=== PATIENT | male | born 1955 | race Caucasian/White ===

== ENCOUNTER 2016-11-30 07:59 | Inpatient (IN) | payer MEDICARE ==
--- NOTE | 2016-11-17 16:04 | HP ---
PREOPERATIVE HISTORY AND PHYSICAL: DATE OF SURGERY: 11/30/16 DATE OF OFFICE VISIT: 11/17/16 ATTENDING SURGEON: Glory Styles MD * (DICTATED BY NAHUM VIRAMONTES) PROCEDURE: Right total hip replacement. CHIEF COMPLAINT: Right hip pain. HISTORY OF PRESENT ILLNESS: Mr. 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 He has failed conservative measures and has therefore agreed to undergo a right total hip replacement with Dr. Styles on 11/30/16. PAST MEDICAL HISTORY: 1. GERD. 2. Hypertension. 3. Hypercholesterolemia. 4. Osteoarthritis. 5. Glass's esophagus. 6. Glucose intolerance. 7. Colon polyps. 8. Hepatitis A as a child. 9. Familial tremor. PAST SURGICAL HISTORY: Left ankle fusion in 2011, left knee surgery in 1969, and a cyst removed from his jaw in 1999. MEDICATIONS: 1. Omeprazole 40 mg 1 by mouth every day. 2. 10 mg by mouth 2 to 3 times per day as directed. 3. Rosuvastatin 40 mg take 1 by mouth once a day. 4. Cialis 5 mg 1 by mouth every 3 days as needed. 5. Diovan HCT 160/12.5 mg take 1 by mouth once daily. 6. Alprazolam 0.25 mg 1 to 2 by mouth every 8 hours as needed, do not mix with alcohol. 7. Amlodipine besylate 2.5 mg take 1 by mouth once a day. 8. Aspirin 81 mg 1 tab by mouth daily. ALLERGIES: No known drug allergies. FAMILY HISTORY: Positive for maternal and paternal hypertension and paternal heart disease. SOCIAL HISTORY: He lives with his son. He is retired. He reports occasional alcohol consumption. He reports prior tobacco abuse. He quit in 2008. He is not currently a smoker. He denies illegal drug use. REVIEW OF SYSTEMS: General: Negative for fevers, chills, or night sweats. No anesthesia problems. HEENT: Negative for headache, lightheadedness, or syncopal episodes. Integumentary: Negative for abrasions, lesions, or open wounds. Cardiothoracic: Negative for chest pain, palpitations, or edema. Positive for hypertension. Pulmonary: Negative for shortness of breath with exertion, chronic cough, or COPD. GI: Negative for nausea, vomiting, diarrhea, or constipation. Positive GERD. : Negative for nocturia, urinary frequency, history of UTIs, or kidney problems. Musculoskeletal: Positive for current complaint. Neuro: Negative for numbness, tingling, history of seizure, stroke, or epilepsy. Endocrine: Denies diabetes or thyroid disease. Heme: Negative for easy bruising, history of bleeding disorder, history of DVT or PE. Infectious Disease: Negative for history of MRSA, hep C, or HIV. PHYSICAL EXAMINATION GENERAL: Well-developed, well-nourished, 60-year-old male, in no acute distress. Alert and oriented x3. Appropriate mood and affect. VITAL SIGNS: Height 71, weight 181, pulse 73, blood pressure 130/76, temperature 97.5, BMI 25.2. HEENT: Normocephalic, atraumatic. Throat: Clear. NECK: Supple. PULMONARY: Lungs are clear to auscultation bilaterally. No wheezing, rhonchi, or rales. CARDIO: Regular rate and rhythm. S1, S2. No murmurs, gallops, or rubs. No edema. ABDOMEN: Positive bowel sounds, soft, and nontender. NEURO: Alert and oriented x3. Cranial nerves grossly intact. Sensation is intact to light touch. MUSCULOSKELETAL: Right lower extremity, skin is intact. No abrasions or open wounds. No palpable masses or lymph nodes. Range of motion from 0 to 95 degrees of hip flexion, 0 degrees internal rotation, 30 degrees external rotation with extreme groin pain. Active hip flexion and abduction also cause pain. +2 dorsalis pedis and posterior tibialis pulses. Sensation is intact to light touch distally. 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 IMPRESSION: Right hip osteoarthritis and advanced idiopathic aseptic necrosis. PLAN: The patient is scheduled to undergo a right total hip replacement with Dr. Styles on 11/30/16. He will return to the office in 10 to 14 days for postoperative followup and suture removal. Percocet was prescribed to the patient's pharmacy for postop pain management, Colace was sent for prevention of constipation, and Coumadin was sent for DVT prophylaxis. The patient was instructed not to take aspirin 1 week prior to surgery and has been cleared by his PCP. NAHUM VIRAMONTES [id number]/[facility] #: [id number] [facility]
[~2016-11-30 07:59] MED LIST: Buffered Lidocaine 0.9% SYRIN* 5 ML/SYR SYRINGE INTRADERM ONE
[2016-11-30] MEDS ORDERED: ceFAZolin 2 GM PREMIX (*) 50 ML IVPB ONE (08:11)
[2016-11-30] MEDS ORDERED: ceFAZolin 1 GM ADVAN(*) 1 GM ADDV.VIAL IVPB ONE (08:11)
[2016-11-30] MEDS ORDERED: Buffered Lidocaine 0.9% SYRIN* 5 ML/SYR SYRINGE ONE (08:11)
[2016-11-30 09:03] LABS: EGFR African American 75.8 (>60); EGFR Non-African American 58.9 (>60)
[2016-11-30] MEDS ORDERED: fentaNYL* 50 MCG/ML 2 ML VIAL (100 MCG VIAL) ONE ×2 (11:40→14:51)
[2016-11-30] MEDS ORDERED: Propofol* 10 MG/ML 20 ML BTL IV PUSH ONE (11:41)
[2016-11-30] MEDS ORDERED: Lidocaine 2% PF * 5 ML VIAL ONE (11:41)
[2016-11-30] MEDS ORDERED: Cisatracurium* 2 MG/ML MDV 5 ML ONE (11:42)
[2016-11-30] MEDS ORDERED: Ondansetron INJ* 2 MG/ML VIAL IV PRN ×2 (12:59→14:38)
[2016-11-30] MEDS ORDERED: Dexamethasone IV* 4 MG/ML 1 ML (4 MG) ONE (13:00)
--- NOTE | 2016-11-30 14:34 | RAD ---
HISTORY: Right hip replacement COMPARISONS: December 29, 2015 VIEWS: 1, portable intraoperative view of the pelvis during right hip arthroplasty at 1:20 PM FINDINGS: A single portable intraoperative view of the pelvis during right hip arthroplasty at 1:20 PM demonstrates a right hip prosthesis with a temporary femoral sizing component. IMPRESSION: PORTABLE INTRAOPERATIVE VIEW OF THE PELVIS DURING RIGHT HIP ARTHROPLASTY.
[2016-11-30] MEDS ORDERED: oxyCODONE/Acetamin 5/325 MG* TAB PO PRN (14:38)
[2016-11-30] MEDS ORDERED: diPHENhydraMINE IV* 50 MG/ML 1 ml VIAL (BENADRYL) IV PRN (14:38)
[2016-11-30] MEDS ORDERED: Acetaminophen TAB* 325 MG PO PRN (14:38)
[2016-11-30] MEDS ORDERED: Polyethylene Glycol 3350* 17 GM PACKET PO PRN (14:38)
[2016-11-30] MEDS ORDERED: Magnesium Hydroxide LIQ* 30 ML UDC PO PRN (14:38)
[2016-11-30] MEDS ORDERED: Bisacodyl SUPP* 10 MG SUPP PR PRN (14:38)
[2016-11-30] MEDS ORDERED: Morphine INJ* 4 MG/ML 1 ML SYRINGE IV PRN (14:38)
[2016-11-30] MEDS ORDERED: oxyCODONE TAB* 5 MG TAB PO PRN (14:38)
[2016-11-30] MEDS ORDERED: Ondansetron TAB* 4 MG PO PRN (14:38)
[2016-11-30] MEDS ORDERED: oxyCODONE/Acetamin 5/325 MG* TAB ONE (14:51)
[2016-11-30] MEDS: fentaNYL* 50 MCG/ML 2 ML VIAL (100 MCG VIAL) IV PRN ×2 (14:53→15:02)
[2016-11-30] MEDS: oxyCODONE/Acetamin 5/325 MG* TAB PO PRN ×3 (14:54→22:00)
--- NOTE | 2016-11-30 15:15 | RAD ---
HISTORY: Status post right hip arthroplasty COMPARISONS: October 18, 2016 VIEWS: 3, Frontal view of the pelvis with frontal and crosstable lateral views of the right hip FINDINGS: BONE DENSITY: Normal. BONES: The patient is status post right hip arthroplasty. There is no hardware failure or osteolysis. JOINTS: The patient is status post right hip arthroplasty. ALIGNMENT: There is no dislocation. SOFT TISSUES: Unremarkable. OTHER FINDINGS: None. IMPRESSION: STATUS POST RIGHT HIP ARTHROPLASTY.
--- NOTE | 2016-11-30 16:33 | PN ---
Hospitalist Progress Note HOSPITALIST ADDENDUM Case reviewed and d/w Luis SIDHU. Mr. Gil is a 60yo M with PMH of GERD, HTN, HLD, DJD, glucose intolerance, admitted for elective right hip arthroplasty. Will resume antihypertensives tomorrow. Agree with current management.
[2016-11-30] MEDS ORDERED: Warfarin TAB(*) 6 MG PO ONE (17:00)
[2016-11-30] MEDS: Docusate CAP* 100 MG PO SCH (20:26)
[2016-11-30] MEDS: ceFAZolin 1 GM VIAL(*) 1 GM in NS 0.9% 50 ML* 50 ML IVPB SCH (20:27)
--- NOTE | 2016-11-30 22:15 | CONS ---
CC: Dr. Marni Cruz * CONSULTATION REPORT: DATE OF CONSULT: 11/30/16 REFERRING SURGEON: Glory Styles MD PCP is Dr. Marni Cruz. Please CC a copy of this report to her. My Attending Physician while in the Hospital is Dr. Rika Sifuentes (Dictation by Luis SIDHU) REASON FOR CONSULTATION: Management of Comorbid Medical Conditions HISTORY OF PRESENT ILLNESS: Mr. Gil is a 60-year-old male with a past medical history significant for hypertension, hypercholesterolemia, GERD with Glass's esophagus, and osteoarthritis who is status post right total hip replacement. The patient is resting comfortably at this time, states pain at the surgical site is approximately 2/10 after pain medication down from 6/10 immediately postop. The patient denies any chest pain, shortness of breath, headaches, change in vision, pain in his legs outside the surgical site, numbness, tingling in his extremities or any other complaints. Patient takes propranolol and Diovan and Amlodipine for his hypertension He took those up until today when he did not take any. The patient states he took all of his other medications except Cialis, alprazolam, and he has held the aspirin 81 mg for the past week. The patient denies any recent illnesses or trauma. PAST MEDICAL HISTORY: Colon polyps, hypertension, hepatitis A as a child, familial tremor, and glucose intolerance. PAST SURGICAL HISTORY: Left ankle fusion in 2011, left knee surgery in 1969, jaw cyst removal in 1999, and tonsillectomy in 1972. The patient denies any reactions to any of those surgeries. MEDICATIONS: 1. Omeprazole 40 mg p.o. daily. 2. Propranolol 10 mg 2 to 3 times daily. 3. Crestor 40 mg once daily. 4. Diovan 160/12.5 mg 1 p.o. daily. 5. Amlodipine 2.5 mg p.o. daily. 6. The patient has Cialis 5 mg as needed. ALLERGIES: No known drug allergies. FAMILY HISTORY: Significant for maternal hypertension and paternal heart disease. The patient denies any family history for cancer, diabetes, lung disease, or liver disease. SOCIAL HISTORY: The patient says he does not smoke. He quit in 2008 with a 15 - year-pack history before that. He states that he drinks 12 to 15 drinks a week. The patient denies illicit drug use. REVIEW OF SYSTEMS: The patient denies fevers chills, nausea, vomiting, headache , chest pain, swelling in his legs, shortness of breath, cough, wheezing, nausea , vomiting, diarrhea, constipation, abdominal pain. The patient says his reflex is under good control with his omeprazole. The patient denies any increase in fatigue. The patient denies insomnia. The patient denies history of hepatitis. PHYSICAL EXAMINATION General: The patient is a 60-year-old male, who appears stated age, resting comfortably in the stretcher. The patient is somewhat lethargic. Vital Signs: Temperature 98.1, heart rate 67, respiratory rate 18, blood pressure 136/79, up from 115/78, oxygen saturation 100% on 3 L nasal cannula. HEENT: Pupils equal, round, reactive to light. Pharynx normal. No lymphadenopathy. Sclerae anicteric. Cardiac: Regular rate and rhythm. No clicks, murmurs, gallops, or rubs. Radial, dorsalis pedis, and posterior tibialis pulses 2+ bilaterally. Pulmonary: Lungs clear to auscultation. Good air exchange. No wheezes, rales , rhonchi/ Abdomen: Normoactive bowel sounds in all 4 quadrants. Abdomen obese, nontender. No hepatosplenomegaly. Neuro: Alert and oriented x3. Cranial nerves II through XII intact. Skin: Warm, pink, intact. Surgical incision covered by large bandage. IMPRESSION: The patient is a 60-year-old male status post right total hip replacement with a past medical history significant for hypertension, hypercholesterolemia, and gastroesophageal reflux disease with Barratt's esophagus. 1. Postoperative state: The estimated blood loss is less than 200 mL. Pain control per primary team. Bowel regimen per primary team. Continue antibiotics per primary team. 2. Hypertension: Hold propranolol and Diovan until tomorrow morning. Continue to monitor blood pressure. 3. Hypercholesterolemia: Continue Crestor at home dose. 4. Gastroesophageal reflux disease with Glass's esophagus: Continue omeprazole at home dose. 5. Impaired glucose tolerance: We will check blood glucose by fingerstick every morning. 6. FEN: Advance diet per primary team. 7. DVT prophylaxis per primary team. 8. Disposition: Per primary team. 9. Code status: Full code. TIME SPENT: Approximately 1 hour was spent on this consult. NAHUM RAY [id number]/[facility] #: [id number] MARIA EUGENIA
[2016-12-01] MEDS: ceFAZolin 1 GM VIAL(*) 1 GM in NS 0.9% 50 ML* 50 ML IVPB SCH ×2 (03:35→11:24)
[2016-12-01] MEDS ORDERED: PROCHLORPERAZINE INJ 5 MG/ML 2 ML VIAL IV PRN (05:10)
[2016-12-01] MEDS ORDERED: PROCHLORPERAZINE INJ 5 MG/ML 2 ML VIAL ONE (05:22)
[2016-12-01 06:03] LABS: Hematocrit 37 % (42-52); Hemoglobin 12.6 g/dl (14.0-18.0)
[2016-12-01 06:29] LABS: BUN/Creatinine Ratio 15.7 (8-20); Calcium 9.3 mg/dL (8.6-10.3); EGFR African American 95.8 (>60); EGFR Non-African American 74.5 (>60); Potassium 3.5 mmol/L (3.5-5.0)
[2016-12-01] MEDS: oxyCODONE/Acetamin 5/325 MG* TAB PO PRN ×3 (06:30→22:38)
--- NOTE | 2016-12-01 07:37 | PN ---
Progress Note - Progress Note Date of Service: 12/01/16 SOAP: Subjective: Pt. is alert, reports nausea overnight. Pain is controlled. Objective: RLE - dressing c/d/i. distally +df/pf, full sens lt, 2+ dp pulse. Vital Signs: Temp Pulse Resp BP Pulse Ox 98.2 F 108 16 122/79 96 12/01/16 02:58 12/01/16 02:58 12/01/16 06:30 12/01/16 02:58 12/01/16 02:58 Laboratory Results - last 24 hr 11/30/16 11/30/16 11/30/16 08:32 08:32 10:19 Hgb Hct INR (Anticoag Therapy) APTT 28.6 Sodium Potassium Chloride Carbon Dioxide Anion Gap BUN Creatinine 1.25 H Est GFR ( Amer) 75.8 Est GFR (Non-Af Amer) 58.9 BUN/Creatinine Ratio Glucose POC Glucose (mg/dL) 130 H Calcium 12/01/16 12/01/16 12/01/16 05:44 05:44 05:44 Hgb 12.6 L Hct 37 L INR (Anticoag Therapy) 1.08 APTT Sodium 136 Potassium 3.5 Chloride 99 L Carbon Dioxide 26 Anion Gap 11 BUN 16 Creatinine 1.02 Est GFR ( Amer) 95.8 Est GFR (Non-Af Amer) 74.5 BUN/Creatinine Ratio 15.7 Glucose 142 H POC Glucose (mg/dL) Calcium 9.3 Assessment: 60 yo M pod 1 s/p RTHA Plan: wbat rle post hip precautions PT/OT d/c briggs 8 mg coumadin tonight and lovenox today
[2016-12-01] MEDS: Docusate CAP* 100 MG PO SCH ×2 (08:52→20:09)
[2016-12-01] MEDS: Atorvastatin* 80 MG TAB PO SCH (08:52)
[2016-12-01] MEDS: Omeprazole CAP* 20 MG PO SCH (08:53)
[2016-12-01] MEDS ORDERED: Hydrochlorothiazide TAB* 25 MG PO SCH (09:00)
[2016-12-01] MEDS ORDERED: Valsartan TAB* 160 MG PO SCH (09:00)
[2016-12-01] MEDS ORDERED: amLODIPine TAB* 5 MG PO SCH (09:00)
[2016-12-01] MEDS ORDERED: Propranolol TAB* 10 MG PO SCH (09:00)
--- NOTE | 2016-12-01 09:05 | OP ---
DATE OF OPERATION: 11/30/16 - ROOM #340 DATE OF : 55 SURGEON: Glory Styles MD PAIN MEDICINE PHYSICIAN: NAHMU Ambriz. Ms. Ruiz did help throughout the procedure with preparation of leg, wound retraction, manipulation of the hip and wound closure. ANESTHESIOLOGIST: Dr. Toth. ANESTHESIA TYPE: Spinal. PRE-OP DIAGNOSES: Advanced avascular necrosis of the femoral head with secondary osteoarthritis of the right hip joint. POST-OP DIAGNOSES: Advanced avascular necrosis of the femoral head with secondary osteoarthritis of the right hip joint. OPERATIVE PROCEDURE: Right total hip arthroplasty. COMPLICATIONS: None. ESTIMATED BLOOD LOSS: 300 cc. SPECIMEN: Femoral head and acetabular reaming sent to pathology. HARDWARE USED: This is uncemented Jessica total hip hardware; for the acetabular cup, a Tritanium cluster hole shell 56E with one 25-mm screw; MDM cementless liner 42E; for the stem, a size 4 Accolade TMZF with a 127-degree neck. For the head, a 28 -4 Biolox delta ceramic V40 femoral and for the insert temple ADM/MDM, /E. BRIEF HISTORY/INDICATION: Mr. Gil is a 60-year-old gentleman with 1 year of increasingly severe right hip pain. He failed conservative treatment with anti - inflammatory, activity modification, pain medication, and ambulatory assistive devices. He was seen in my office and plain radiographs indicated advanced avascular necrosis of the femoral head with subchondral collapse and resulting secondary osteoarthritis of the right hip joint. MRI confirms this. The radiographs also indicated subchondral collapse of the femoral head with essentially a femoral head fracture. Patient was given different options then decided to proceed with right total hip arthroplasty for improved pain and quality of life. Informed consent was obtained from the patient. He understood the risks of surgery included but were not limited to bleeding, infection, damage to nearby structures, continued pain, need for further surgery , intraoperative fracture, nerve palsy, hardware failure, loosening, dislocation , leg length discrepancy, stroke, heart attack, blood clot, and . He wished to proceed. INTRAOPERATIVE FINDINGS: Intraoperatively, the patient was noted to have significant cartilage loss in both the acetabulum and femoral head. He did have subchondral collapse of the femoral head superolaterally. DESCRIPTION OF PROCEDURE: Mr. Gil was identified in the preanesthesia unit. His right lower extremity was marked as the correct operative side. Informed consent was signed and placed in the chart. The patient was taken to the operating room and placed under anesthesia. A Ornelas catheter was placed. The patient was turned on the left side in the left lateral decubitus position on the pegboard. All bony prominences were well padded. Right lower extremity was prepped and draped in the usual sterile fashion. Preop time-out was made to correctly identify the patient's side and site. Appropriate perioperative antibiotics were given within 1 hour of incision. A 12-cm posterior hip incision was made with a 10-blade and carried down to the lateral fascia. Lateral fascial layer was incised in line with the skin incision. Charnley retractors were placed. The piriformis and conjoint tendons were identified. These were elevated off the posterolateral femur using electrocautery and tagged with two #5 Ethibonds. Next, electrocautery was used to make a standard posterolateral capsular flap and this was also tagged with two #5 Ethibonds. The hip was carefully dislocated. Subchondral collapse of the femoral head was noted. Lesser troch to center of the femoral head measured 50 mm. Oscillating saw was used to make the appropriate femoral neck cut. Femoral head was sent to pathology. The femur was carefully retracted anteriorly. After appropriate placement of retractor, the acetabulum was easily visualized. A long-handled knife was used to remove any remaining labrum. There was significant cartilage loss throughout the acetabulum. The acetabulum was sequentially reamed up to a size 55. Good bleeding subchondral bone bed was obtained. Final insert chosen was a 56 Tritanium cluster hole shell. This was impacted into the acetabulum without difficulty. Good stability was achieved. One 25 mm screw was placed in the superior posterior quadrant for extra stability. There was appropriate anteversion and abduction angle. A 42E MDM cementless liner was chosen and this was impacted into the acetabulum without difficulty. Stability of the alignment was checked and rechecked and noted to be stable. Attention was next turned to preparation of the femur. A canal finder was used to enter the proximal femur. Proximal femur was sequentially broached up to a size 4. Size 4 had good fit and appropriate anteversion. Trial 127-degree neck was chosen. The 0 femoral head showed a lesser troch to center of the femoral head measurement of 54 mm therefore -4 head was chosen. The MDM insert was also placed and the hip was reduced. Hip was taken through a range of motion and noted to be stable on all positions. There was good soft tissue tension and appropriate leg lengths. The hip was carefully dislocated. All trials were carefully removed. Final implant chosen was a size 4 Accolade TMZF with a 127-degree neck. This was impacted into the femur without difficulty. A 28 -4 ceramic Biolox delta ceramic head was chosen as well as a 28/48/42E MDM insert. This was impacted on to the femoral neck without difficulty. The lesser troch to center of the femoral head measured 50 mm. The hip was reduced and taken through a range of motion. The hip was stable in all positions. The hip was copiously irrigated with sterile saline. Previously tagged capsule and tendons were reapproximated to the posterolateral femur through 2 trochanteric drill holes. The lateral fascial layer was closed using interrupted #1 Vicryls. The rest of the incision was closed in a layered fashion using 0 and 2-0 Vicryls. Skin was closed using running 3-0 Monocryl suture and Dermabond. Sterile Adaptic, 4x4s, and paper tape were placed over this. The patient's anesthesia was reversed without difficulty. He was taken to the PACU in stable condition. Intended weightbearing will be weightbearing as tolerated. Intended DVT prophylaxis will be Coumadin with a Lovenox bridge. [id number]/[facility] #: [id number] MARIA EUGENIA
[2016-12-01] MEDS ORDERED: Enoxaparin(*) 40 MG/0.4 ML SYR SUBCUT SCH (12:00)
--- NOTE | 2016-12-01 13:18 | PN ---
Subjective Date of Service: 12/01/16 Interval History: Patient seen this afternoon. Had some light-headedness with PT this morning. Nausea from last night resolved. Ornelas removed, no urination yet. Pain well controlled. Family History: Unchanged from Admission Social History: Unchanged from Admission Past Medical History: Unchanged from Admission Objective Active Medications: Acetaminophen (Tylenol Tab*) 650 mg PO Q4H PRN PRN Reason: PAIN OR TEMPERATURE Amlodipine Besylate (Norvasc Tab*) [facility] Last Admin: 12/01/16 08:53 Dose: 2.5 mg Atorvastatin Calcium (Lipitor*) 80 mg PO QAM [facility] Last Admin: 12/01/16 08:52 Dose: 80 mg Bisacodyl (Dulcolax Supp*) 10 mg RI DAILY PRN PRN Reason: constipation Diphenhydramine HCl (Benadryl Iv*) 12.5 mg IV Q6H PRN PRN Reason: PRURITIS Docusate Sodium (Colace Cap*) 100 mg PO BID [facility] Last Admin: 12/01/16 08:52 Dose: 100 mg Enoxaparin Sodium (Lovenox(*)) 40 mg SUBCUT Q24H [facility] Last Admin: 12/01/16 11:23 Dose: 40 mg Lactated Ringer's (Lactated Ringers 1000 Ml Bag*) 1,000 mls @ 100 mls/hr IV PER RATE [facility] Last Admin: 12/01/16 04:04 Dose: 100 mls/hr Lactulose (Lactulose*) 30 ml PO Q6H PRN PRN Reason: constipation Magnesium Hydroxide (Milk Of Magnesia Liq*) 30 ml PO Q6H PRN PRN Reason: constipation Morphine Sulfate (Morphine Inj (Syringe)*) 4 mg IV Q2H PRN PRN Reason: PAIN Omeprazole (Prilosec Cap*) [facility] [place] PRN Reason: Protocol Last Admin: 12/01/16 08:53 Dose: 20 mg Ondansetron HCl (Zofran Inj*) 4 mg IV Q6H PRN PRN Reason: nausea Last Admin: 12/01/16 03:04 Dose: 4 mg Ondansetron HCl (Zofran Tab*) 4 mg PO Q6H PRN PRN Reason: NAUSEA Oxycodone HCl (Roxycodone Tab*) 10 mg PO Q4H PRN PRN Reason: SEVERE PAIN Oxycodone/Acetaminophen (Percocet 5/325 Tab*) 1 tab PO Q3H PRN PRN Reason: PAIN - MODERATE Oxycodone/Acetaminophen (Percocet 5/325 Tab*) 2 tab PO Q3H PRN PRN Reason: PAIN - MODERATE Last Admin: 12/01/16 11:22 Dose: 2 tab Pharmacy Profile Note (Coumadin Daily Reminder*) 1 note FOLLOW UP 1700 [facility] Last Admin: 11/30/16 19:14 Dose: 1 note Polyethylene Glycol/Electrolytes (Miralax*) 17 gm PO DAILY PRN PRN Reason: Constipation Prochlorperazine Edisylate (Compazine Inj*) 10 mg IV Q6H PRN PRN Reason: NAUSEA Propranolol HCl (Inderal Tab*) [facility] [place] Last Admin: 12/01/16 08:52 Dose: 10 mg Valsartan (Diovan Tab*) 160 mg PO [facility] Last Admin: 12/01/16 08:53 Dose: 160 mg Warfarin Sodium (Coumadin Tab(*)) 8 mg PO ONCE@1700 ONE PRN Reason: Protocol Stop: 12/01/16 17:01 Vital Signs 11/30/16 11/30/16 11/30/16 14:30 14:35 14:40 Temperature 97.5 F Pulse Rate 82 70 71 Respiratory 20 18 18 Rate Blood Pressure 121/85 111/85 126/81 (mmHg) O2 Sat by Pulse 100 100 100 Oximetry 11/30/16 11/30/16 11/30/16 20:40 20:42 21:54 Temperature 98.2 F Pulse Rate 90 100 Respiratory 16 16 Rate Blood Pressure 117/79 (mmHg) O2 Sat by Pulse 96 Oximetry 12/01/16 12/01/16 11:22 11:40 Temperature 98.7 F Pulse Rate 90 Respiratory 16 16 Rate Blood Pressure 96/55 (mmHg) O2 Sat by Pulse 97 Oximetry Oxygen Devices in Use Now: None Appearance: Middle-aged, M, laying in chair in NAD Eyes: No Scleral Icterus Ears/Nose/Mouth/Throat: Mucous Membranes Moist Neck: NL Appearance and Movements; NL JVP Respiratory: Symmetrical Chest Expansion and Respiratory Effort, Clear to Auscultation Cardiovascular: NL Sounds; No Murmurs; No JVD, RRR Abdominal: NL Sounds; No Tenderness; No Distention Lymphatic: No Cervical Adenopathy Extremities: No Edema Skin: - - R hip dressing in place, c/d/i Neurological: Alert and Oriented x 3 Result Diagrams: 12/01/16 05:44 12/01/16 05:44 Assess/Plan/Problems-Billing Assessment: S/P R KRISTA in a 60 yo M with hx of HTN, HLD, GERD - Patient Problems (1) Status post total hip replacement, right Current Visit: Yes Comment: Management/analgesia as per Ortho. Ornelas out. On Warfarin. (2) HTN (hypertension) Current Visit: Yes Comment: BPs soft after AM Amlodipine, Propranolol and Valsartan, will hold for tomorrow (3) HLD (hyperlipidemia) Current Visit: Yes Comment: Continue statin (4) GERD (gastroesophageal reflux disease) Current Visit: Yes Comment: Continue omeprazole (5) DVT prophylaxis Current Visit: Yes Comment: Lovenox/Coumadin
[2016-12-01] MEDS ORDERED: Warfarin TAB(*) 4 MG PO ONE (17:00)
[2016-12-01] MEDS ORDERED: Lactated Ringers 500 ml BAG* 500 ML IV ONE (17:30)
[2016-12-02 06:29] LABS: Hematocrit 32 % (42-52); Hemoglobin 11.2 g/dl (14.0-18.0); Mean Platelet Volume 7 um3 (7.4-10.4)
--- NOTE | 2016-12-02 07:43 | PN ---
Progress Note - Progress Note Date of Service: 12/02/16 Note: s: 60 y/o male s/p R KRISTA 11/30/[address] Styles for AVN. Patient reports feeling well, + stiffness this AM. Afebrile overnight, VSS. No questions/ concerns. o: General- Well appearing, NAD MSK- surgical dressing removed from RIght hip, incision c/d/i, no drainage noted , + mild ecchymosis. + DF/PF, PT 2+ b/l, neg homans R side, sensation grossly intact. Vital Signs Temp 98.8 F 12/02/16 03:59 Pulse 96 12/02/16 03:59 Resp 16 12/02/16 03:59 BP 96/52 12/02/16 03:59 Pulse Ox 93 12/02/16 03:59 Intake & Output 12/01/16 12/02/16 12/02/16 18:59 06:59 18:59 Intake Total 1675 2989 Output Total 650 1400 Balance 1025 1589 Intake: IV Fluids 985 989 ABX - CEFAZOLIN 63 LR 922 989 Oral 690 2000 Output: Urine 600 1400 Ornelas 50 Laboratory Results - last 24 hr 12/02/16 12/02/16 06:06 06:06 Hgb 11.2 L Hct 32 L Plt Count 171 MPV 7 L INR (Anticoag Therapy) 1.89 H A: Stable 60 y/o male s/p R KRISTA 11/30/[address] Styles for AVN. P: - DVT prophylaxis- INR 1.89, D/C lovenox, coumadin 2mg tonight - D/C likely tomorrow or later this afternoon to home - PT/ OT - Continue current pain regimen Active Medications Generic Name Dose Route Start Last Admin Trade Name Freq PRN Reason Stop Dose Admin Acetaminophen 650 mg 11/30/16 14:38 Tylenol Tab* PO Q4H PRN PAIN OR TEMPERATURE Atorvastatin Calcium 80 mg 12/01/16 09:00 12/01/16 08:52 Lipitor* PO 80 mg QAM GABRIEL Administration Bisacodyl 10 mg 11/30/16 14:38 Dulcolax Supp* [place] DAILY PRN constipation Diphenhydramine HCl 12.5 mg 11/30/16 14:38 Benadryl Iv* IV Q6H PRN PRURITIS Docusate Sodium 100 mg 11/30/16 21:00 12/01/16 20:09 Colace Cap* PO 100 mg BID GABRIEL Administration Lactated Ringer's 1,000 mls @ 100 mls/hr 11/30/16 15:00 12/01/16 14:38 Lactated Ringers 1000 Ml Bag* IV 100 mls/hr PER RATE GABRIEL Administration Lactulose 30 ml 11/30/16 14:38 Lactulose* PO Q6H PRN constipation Magnesium Hydroxide 30 ml 11/30/16 14:38 Milk Of Magnesia Liq* PO Q6H PRN constipation Morphine Sulfate 4 mg 11/30/16 14:38 Morphine Inj (Syringe)* IV Q2H PRN PAIN Omeprazole 20 mg 12/01/16 09:00 12/01/16 08:53 Prilosec Cap* PO 20 mg QAM GABRIEL Administration Protocol Ondansetron HCl 4 mg 11/30/16 14:38 12/01/16 03:04 Zofran Inj* IV 4 mg Q6H PRN Administration nausea Ondansetron HCl 4 mg 11/30/16 14:38 Zofran Tab* PO Q6H PRN NAUSEA Oxycodone HCl 10 mg 11/30/16 14:38 Roxycodone Tab* PO Q4H PRN SEVERE PAIN Oxycodone/Acetaminophen 1 tab 11/30/16 14:38 Percocet 5/325 Tab* PO Q3H PRN PAIN - MODERATE Oxycodone/Acetaminophen 2 tab 11/30/16 14:38 12/01/16 22:38 Percocet 5/325 Tab* PO 2 tab Q3H PRN Administration PAIN - MODERATE Pharmacy Profile Note 1 note 11/30/16 17:00 12/01/16 17:19 Coumadin Daily Reminder* FOLLOW UP 1 note 1700 GABRIEL Administration Polyethylene Glycol/Electrolytes 17 gm 11/30/16 14:38 Miralax* PO DAILY PRN Constipation Prochlorperazine Edisylate 10 mg 12/01/16 05:10 Compazine Inj* IV Q6H PRN NAUSEA Warfarin Sodium 2 mg 12/02/16 17:00 Coumadin Tab(*) PO 12/02/16 17:01 ONCE@1700 ONE Protocol
[2016-12-02] MEDS: Omeprazole CAP* 20 MG PO SCH (08:29)
[2016-12-02] MEDS: Atorvastatin* 80 MG TAB PO SCH (08:29)
[2016-12-02] MEDS: oxyCODONE/Acetamin 5/325 MG* TAB PO PRN ×2 (08:29→12:41)
[2016-12-02] MEDS: Docusate CAP* 100 MG PO SCH ×2 (08:30→19:13)
--- NOTE | 2016-12-02 13:50 | PN ---
Subjective Date of Service: 12/02/16 Interval History: Pt feels well, walked with assist to bathroom Family History: Unchanged from Admission Social History: Unchanged from Admission Past Medical History: Unchanged from Admission Objective Active Medications: Acetaminophen (Tylenol Tab*) 650 mg PO Q4H PRN PRN Reason: PAIN OR TEMPERATURE [facility]atin [facility] ([facility]*) [facility] [place] Last Admin: 12/02/16 08:29 Dose: 80 mg Bisacodyl (Dulcolax Supp*) 10 mg [place] DAILY PRN PRN Reason: constipation Diphenhydramine HCl (Benadryl Iv*) 12.5 mg IV Q6H PRN PRN Reason: PRURITIS Docusate Sodium (Colace Cap*) 100 mg PO BID [facility] Last Admin: 12/02/16 08:30 Dose: 100 mg Lactated Ringer's (Lactated Ringers 1000 Ml Bag*) 1,000 mls @ 100 mls/hr IV PER RATE [facility] Last Admin: 12/01/16 14:38 Dose: 100 mls/hr Lactulose (Lactulose*) 30 ml PO Q6H PRN PRN Reason: constipation Magnesium Hydroxide (Milk Of Magnesia Liq*) 30 ml PO Q6H PRN PRN Reason: constipation Morphine Sulfate (Morphine Inj (Syringe)*) 4 mg IV Q2H PRN PRN Reason: PAIN Omeprazole (Prilosec Cap*) 20 mg PO [facility] PRN Reason: Protocol Last Admin: 12/02/16 08:29 Dose: 20 mg Ondansetron HCl (Zofran Inj*) 4 mg IV Q6H PRN PRN Reason: nausea Last Admin: 12/01/16 03:04 Dose: 4 mg Ondansetron HCl (Zofran Tab*) 4 mg PO Q6H PRN PRN Reason: NAUSEA Oxycodone HCl (Roxycodone Tab*) 10 mg PO Q4H PRN PRN Reason: SEVERE PAIN Oxycodone/Acetaminophen (Percocet 5/325 Tab*) 1 tab PO Q3H PRN PRN Reason: PAIN - MODERATE Oxycodone/Acetaminophen (Percocet 5/325 Tab*) 2 tab PO Q3H PRN PRN Reason: PAIN - MODERATE Last Admin: 12/02/16 12:41 Dose: 2 tab Pharmacy Profile Note (Coumadin Daily Reminder*) 1 note FOLLOW UP 1700 GABRIEL Last Admin: 12/01/16 17:19 Dose: 1 note Polyethylene Glycol/Electrolytes (Miralax*) 17 gm PO DAILY PRN PRN Reason: Constipation Prochlorperazine Edisylate (Compazine Inj*) 10 mg IV Q6H PRN PRN Reason: NAUSEA Warfarin Sodium (Coumadin Tab(*)) 2 mg PO ONCE@1700 ONE PRN Reason: Protocol Stop: 12/02/16 17:01 Vital Signs 12/01/16 12/01/16 12/01/16 15:32 16:25 17:01 Temperature 98.4 F 98.7 F Pulse Rate 89 79 Respiratory 15 16 Rate Blood Pressure 75/46 93/60 (mmHg) O2 Sat by Pulse 95 96 Oximetry 12/01/16 12/01/16 12/01/16 17:21 19:39 19:40 Temperature 99.2 F Pulse Rate 94 Respiratory 16 16 Rate Blood Pressure 100/60 115/72 (mmHg) O2 Sat by Pulse 97 Oximetry 12/01/16 12/02/16 12/02/16 22:38 00:07 00:38 Temperature 98.8 F Pulse Rate 88 Respiratory 15 16 16 Rate Blood Pressure 95/56 (mmHg) O2 Sat by Pulse 93 Oximetry 12/02/16 12/02/16 12/02/16 03:59 07:45 08:29 Temperature 98.8 F 99.0 F Pulse Rate 96 100 Respiratory 16 20 16 Rate Blood Pressure 96/52 96/63 (mmHg) O2 Sat by Pulse 93 96 Oximetry 12/02/16 12/02/16 12/02/16 10:24 12:20 12:41 Temperature 98.4 F Pulse Rate 110 Respiratory 16 22 16 Rate Blood Pressure 115/74 (mmHg) O2 Sat by Pulse 97 Oximetry Oxygen Devices in Use Now: None Appearance: 60 yo M in nAD, aAOx3 Eyes: No Scleral Icterus, PERRLA Ears/Nose/Mouth/Throat: NL Teeth, Lips, Gums, Mucous Membranes Moist Neck: NL Appearance and Movements; NL JVP, Trachea Midline Respiratory: Symmetrical Chest Expansion and Respiratory Effort, Clear to Auscultation Cardiovascular: NL Sounds; No Murmurs; No JVD, RRR Abdominal: NL Sounds; No Tenderness; No Distention Lymphatic: No Cervical Adenopathy Extremities: No Clubbing, Cyanosis, - - mild R thigh edema, post op wound sutured, no dehiscence Skin: No Rash or Ulcers, No Nodules or Sclerosis Neurological: Alert and Oriented x 3, NL Muscle Strength and Tone Result Diagrams: 12/02/16 06:06 12/01/16 05:44 Assess/Plan/Problems-Billing Assessment: S/P R KRISTA in a 60 yo M with hx of HTN, HLD, GERD - Patient Problems (1) HTN (hypertension) Comment: BPs soft holding Amlodipine, Propranolol and Valsartan. (2) Status post total hip replacement, right Comment: as per Ortho. On Warfarin. (3) GERD (gastroesophageal reflux disease) Comment: Continue omeprazole (4) HLD (hyperlipidemia) Comment: Continue statin (5) Impaired glucose tolerance Comment: BG's slightly elevated will change diet to ADA Status and Disposition: consult for med management. will follow
[2016-12-02] MEDS ORDERED: Warfarin TAB(*) 2 MG PO ONE (17:00)
[2016-12-03 06:49] LABS: Hematocrit 29 % (42-52); Hemoglobin 10.3 g/dl (14.0-18.0)
--- NOTE | 2016-12-03 07:49 | PN ---
Progress Note - Progress Note Date of Service: 12/03/16 SOAP: Subjective: 60 y/o male s/p R KRISTA 11/30/[address] Styles for AVN. Patient reports feeling well, eager for D/C. working well with PT, feels more mobile and feels would be safe at home. William SOB, chest pain. VSS afebrile overnight. Objective: General- Well appearing, NAD, resting in bed comfortably. MSK- R hip incision c/d/i, no drainage noted, Vital Signs Temp 98.6 F 12/03/16 03:25 Pulse 101 12/03/16 03:25 Resp 16 12/03/16 03:25 BP 101/55 12/03/16 03:25 Pulse Ox 95 12/03/16 03:25 Intake & Output 12/02/16 12/03/16 12/03/16 18:59 06:59 18:59 Intake Total 1190 1620 Output Total 2049 175 Balance -860 -130 Intake: IV Fluids 0 LR 0 Oral 1190 1620 Output: Urine 2049 1749 Other: Estimated Void Medium # Bowel Movements 1 0 Estimated Stool Amount Small # Voids 1 Laboratory Results - last 24 hr 12/02/16 12/03/16 12/03/16 09:49 06:36 06:36 Hgb 10.3 L Hct 29 L INR (Anticoag Therapy) 2.07 H POC Glucose (mg/dL) 172 H Assessment: Stable 60 y/o male s/p R KRISTA 11/30/[address] Styles for AVN. Plan: - Percocet PO pain - Colace for constipation - Follow up with DR. Styles within 10 days - COumadin for DVT prophlyaxis, INR theraputic - D/C home today with home services Active Medications Generic Name Dose Route Start Last Admin Trade Name Freq PRN Reason Stop Dose Admin Acetaminophen 650 mg 11/30/16 14:38 Tylenol Tab* PO Q4H PRN PAIN OR TEMPERATURE Atorvastatin Calcium 80 mg 12/01/16 09:00 12/02/16 08:29 Lipitor* PO 80 mg QAM GABRIEL Administration Bisacodyl 10 mg 11/30/16 14:38 Dulcolax Supp* [place] DAILY PRN constipation Diphenhydramine HCl 12.5 mg 11/30/16 14:38 Benadryl Iv* IV Q6H PRN PRURITIS Docusate Sodium 100 mg 11/30/16 21:00 12/02/16 19:13 Colace Cap* PO 100 mg BID GABRIEL Administration Lactated Ringer's 1,000 mls @ 100 mls/hr 11/30/16 15:00 12/01/16 14:38 Lactated Ringers 1000 Ml Bag* IV 100 mls/hr PER RATE GABRIEL Administration Lactulose 30 ml 11/30/16 14:38 Lactulose* PO Q6H PRN constipation Magnesium Hydroxide 30 ml 11/30/16 14:38 Milk Of Magnesia Liq* PO Q6H PRN constipation Morphine Sulfate 4 mg 11/30/16 14:38 Morphine Inj (Syringe)* IV Q2H PRN PAIN Omeprazole 20 mg 12/01/16 09:00 12/02/16 08:29 Prilosec Cap* PO 20 mg QAM GABRIEL Administration Protocol Ondansetron HCl 4 mg 11/30/16 14:38 12/01/16 03:04 Zofran Inj* IV 4 mg Q6H PRN Administration nausea Ondansetron HCl 4 mg 11/30/16 14:38 Zofran Tab* PO Q6H PRN NAUSEA Oxycodone HCl 10 mg 11/30/16 14:38 Roxycodone Tab* PO Q4H PRN SEVERE PAIN Oxycodone/Acetaminophen 1 tab 11/30/16 14:38 12/02/16 17:05 Percocet 5/325 Tab* PO 1 tab Q3H PRN Administration PAIN - MODERATE Oxycodone/Acetaminophen 2 tab 11/30/16 14:38 12/02/16 12:41 Percocet 5/325 Tab* PO 2 tab Q3H PRN Administration PAIN - MODERATE Pharmacy Profile Note 1 note 11/30/16 17:00 12/02/16 17:05 Coumadin Daily Reminder* FOLLOW UP 1 note 1700 GABRIEL Administration Polyethylene Glycol/Electrolytes 17 gm 11/30/16 14:38 Miralax* PO DAILY PRN Constipation Prochlorperazine Edisylate 10 mg 12/01/16 05:10 Compazine Inj* IV Q6H PRN NAUSEA Propranolol HCl 10 mg 12/03/16 09:00 Inderal Tab* PO DAILY GABRIEL
--- NOTE | 2016-12-03 08:17 | PN ---
Subjective Date of Service: 12/03/16 Interval History: pt feels fine and is planned to go home Family History: Unchanged from Admission Social History: Unchanged from Admission Past Medical History: Unchanged from Admission Objective Active Medications: Acetaminophen (Tylenol Tab*) 650 mg PO Q4H PRN PRN Reason: PAIN OR TEMPERATURE Atorvastatin Calcium (Lipitor*) [facility] [place] Last Admin: 12/02/16 08:29 Dose: 80 mg Bisacodyl (Dulcolax Supp*) 10 mg [place] DAILY PRN PRN Reason: constipation Diphenhydramine HCl (Benadryl Iv*) 12.5 mg IV Q6H PRN PRN Reason: PRURITIS Docusate Sodium (Colace Cap*) 100 mg PO BID [facility] Last Admin: 12/02/16 19:13 Dose: 100 mg Lactated Ringer's (Lactated Ringers 1000 Ml Bag*) 1,000 mls @ 100 mls/hr IV PER RATE [facility] Last Admin: 12/01/16 14:38 Dose: 100 mls/hr Lactulose (Lactulose*) 30 ml PO Q6H PRN PRN Reason: constipation Magnesium Hydroxide (Milk Of Magnesia Liq*) 30 ml PO Q6H PRN PRN Reason: constipation Morphine Sulfate (Morphine Inj (Syringe)*) 4 mg IV Q2H PRN PRN Reason: PAIN Omeprazole (Prilosec Cap*) 20 mg PO [facility] PRN Reason: Protocol Last Admin: 12/02/16 08:29 Dose: 20 mg Ondansetron HCl (Zofran Inj*) 4 mg IV Q6H PRN PRN Reason: nausea Last Admin: 12/01/16 03:04 Dose: 4 mg Ondansetron HCl (Zofran Tab*) 4 mg PO Q6H PRN PRN Reason: NAUSEA Oxycodone HCl (Roxycodone Tab*) 10 mg PO Q4H PRN PRN Reason: SEVERE PAIN Oxycodone/Acetaminophen (Percocet 5/325 Tab*) 1 tab PO Q3H PRN PRN Reason: PAIN - MODERATE Last Admin: 12/02/16 17:05 Dose: 1 tab Oxycodone/Acetaminophen (Percocet 5/325 Tab*) 2 tab PO Q3H PRN PRN Reason: PAIN - MODERATE Last Admin: 12/02/16 12:41 Dose: 2 tab Pharmacy Profile Note (Coumadin Daily Reminder*) 1 note FOLLOW UP 1700 GABRIEL Last Admin: 12/02/16 17:05 Dose: 1 note Polyethylene Glycol/Electrolytes (Miralax*) 17 gm PO DAILY PRN PRN Reason: Constipation Prochlorperazine Edisylate (Compazine Inj*) 10 mg IV Q6H PRN PRN Reason: NAUSEA Propranolol HCl (Inderal Tab*) 10 mg PO DAILY [facility] Vital Signs 12/02/16 12/02/16 12/02/16 08:29 10:24 12:20 Temperature 98.4 F Pulse Rate 110 Respiratory 16 16 22 Rate Blood Pressure 115/74 (mmHg) O2 Sat by Pulse 97 Oximetry 12/02/16 12/02/16 12/02/16 12:41 14:41 15:22 Temperature 98.8 F Pulse Rate 102 Respiratory 16 16 17 Rate Blood Pressure 91/54 (mmHg) O2 Sat by Pulse 93 Oximetry 12/02/16 12/02/16 12/02/16 16:00 17:05 19:05 Temperature Pulse Rate Respiratory 16 16 Rate Blood Pressure (mmHg) O2 Sat by Pulse 93 Oximetry 12/02/16 12/02/16 12/03/16 19:15 19:20 00:03 Temperature 98.9 F 100.0 F Pulse Rate 103 106 Respiratory 19 19 16 Rate Blood Pressure 100/64 108/65 (mmHg) O2 Sat by Pulse 93 94 Oximetry 12/03/16 03:25 Temperature 98.6 F Pulse Rate 101 Respiratory 16 Rate Blood Pressure 101/55 (mmHg) O2 Sat by Pulse 95 Oximetry Oxygen Devices in Use Now: None Appearance: 60 yo M in nAD, AAOx3 Eyes: No Scleral Icterus, PERRLA Ears/Nose/Mouth/Throat: NL Teeth, Lips, Gums, Mucous Membranes Moist Neck: NL Appearance and Movements; NL JVP, Trachea Midline Respiratory: Symmetrical Chest Expansion and Respiratory Effort, Clear to Auscultation Cardiovascular: NL Sounds; No Murmurs; No JVD, RRR Abdominal: NL Sounds; No Tenderness; No Distention Lymphatic: No Cervical Adenopathy Extremities: No Edema, No Clubbing, Cyanosis Skin: No Rash or Ulcers, No Nodules or Sclerosis, - - r hip post op dressings not removed Neurological: Alert and Oriented x 3, NL Muscle Strength and Tone Result Diagrams: 12/03/16 06:36 12/01/16 05:44 Assess/Plan/Problems-Billing Assessment: S/P R KRISTA in a 60 yo M with hx of HTN, HLD, GERD - Patient Problems (1) HTN (hypertension) Comment: BPs soft holding Amlodipine and Valsartan. Slight tachycardia, will restart propranolol (2) Status post total hip replacement, right Comment: as per Ortho. On Warfarin. (3) GERD (gastroesophageal reflux disease) Comment: Continue omeprazole (4) HLD (hyperlipidemia) Comment: Continue statin (5) Impaired glucose tolerance Comment: BG's slightly elevated will change diet to ADA Status and Disposition: consult for med management. OK with d/c today
[2016-12-03] MEDS ORDERED: Propranolol TAB* 10 MG PO SCH (09:00)
[2016-12-03] MEDS: Atorvastatin* 80 MG TAB PO SCH (10:21)
[2016-12-03] MEDS: Docusate CAP* 100 MG PO SCH (10:21)
[2016-12-03] MEDS: Omeprazole CAP* 20 MG PO SCH (10:21)
--- NOTE | 2016-12-03 13:11 | DS ---
DATE OF ADMISSION: 11/30/2016. DATE OF DISCHARGE: 12/03/2016. ATTENDING PHYSICIAN: Dr. Glory Styles * (dictated by NAHUM Marcus). CHIEF COMPLAINT: 1. Right hip pain. 2. GERD. 3. Hypertension. 4. Hypercholesterolemia. 5. Osteoarthritis. 6. Glass's esophagus. 7. Glucose intolerance. 8. Colon polyps. 9. Hepatitis A as a child. 10. Familial tremor. DISCHARGE DIAGNOSES: 1. Status post right total hip replacement, uncomplicated. 2. GERD. 3. Hypertension. 4. Hypercholesterolemia. 5. Osteoarthritis. 6. Glass's esophagus. 7. Glucose intolerance. 8. Colon polyps. 9. Hepatitis A as a child. 10. Familial tremor. PROCEDURE: Right total hip replacement, 11/30/2016. CONSULTATIONS: 1. Physical Therapy. 2. Occupational Therapy. 3. Medicine. BRIEF HISTORY: Mr. 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 Styles due to increasing pain. HOSPITAL COURSE: Mr. Gil was admitted to [facility] on 2016 where he underwent a right total hip arthroplasty which was uncomplicated. Postoperatively he recovered on the Surgical Short Stay Unit. His Ornelas was removed on postoperative day two and he was voiding on his own without difficulty. He was advanced to a regular diet. His pain was controlled with p.o. Percocet. He was restarted on his home medications with hold parameters. His vital signs and labs remained stable. He was able to bear weight as tolerated on the right lower extremity and advanced appropriately with physical therapy and occupation therapy. His DVT prophylaxis was managed with Lovenox and Coumadin until he reached therapeutic INR. By postoperative day three, he was orthopedically and medically stable for discharge to go home with home services. PHYSICAL EXAMINATION: General: Well-appearing, in no acute distress, alert and oriented. Vital Signs: On the day of discharge, temperature 98.6, pulse 101, respirations 16, blood pressure 101/55, pulse oxygenation 95 percent. Musculoskeletal: Right hip incision clean, dry and intact. No drainage noted. New dressing placed. Sensation intake bilaterally in the lower extremities. Negative Monroe's sign bilateral lower extremities. Positive dorsiflexion and plantarflex. Posterior tibial pulses, 2+ bilaterally. Minimal edema bilateral lower extremities. LABORATORY DATA: H and H of 10.3 and 29. INR of 2.07. DISCHARGE MEDICATIONS: 1. Tylenol 650 mg every 4 to 6 hours as needed for pain prn, not to exceed 4000 mg a day. 2. Crestor 40 mg p.o. q.a.m. 3. Colace 100 mg p.o. b.i.d. 4. Omeprazole 40 mg p.o. q.a.m. 5. Percocet 5/325 mg one to two tablets as needed every 3 hours for pain. 6. Norvasc 2.5 mg p.o. q.a.m. 7. Aspirin 81 mg p.o. q.a.m. 8. Propranolol 10 mg p.o. q.a.m. 9. Diovan one tablet daily q.a.m. 10. Coumadin 2 mg tablets one to three tablets every day at 5:00 p.m. per physician's instructions. CONDITION ON DISCHARGE: Stable. DISCHARGE INSTRUCTIONS: Mr. Gil is a very pleasant, 60-year-old gentleman on postoperative day three status post right total hip arthroplasty which was uncomplicated. He is orthopedically and medical stable for discharge today to go home with home services. His labs and vital signs are stable. He will restart his home medications. He will take 4 mg of Coumadin over the weekend and have an INR checked on Tuesday. He will have home INR draws done on Tuesday and with visiting nurse services. He will remain weightbearing as tolerated on the right lower extremity. He will have home physical therapy up to twice a week and take Percocet as needed for pain control. He will take Colace as needed for constipation. He will follow-up with Dr. Styles in approximately 10 to 14 days for incision check and suture removal. He was instructed to go immediately to the ER should he develop chest pain or shortness of breath. Should he develop fever, increasing pain or redness, he is to call the office immediately. NAHUM MARCUS [id number]/[facility] #: [id number] MARIA EUGENIA
[2016-12-03 13:21] VITALS: BP 117/73
== END 2016-12-03 13:30 | disposition home health service (06) | DRG 470 ==
LOC: AA 07:59 → SSU 15:54
PROVIDERS: ADMIT Orthopaedic Surgery Adult Reconstructive Orthopaedic Surgery; ATTEND Orthopaedic Surgery Adult Reconstructive Orthopaedic Surgery
PROC: 0SR904A Replacement of Right Hip Joint with Ceramic on Polyethylene Synthetic Substitute, Uncemented, Open Approach (ICD-10-PCS; principal; 2016-11-30 10:30)
DX: M16.11 Unilateral primary osteoarthritis, right hip (principal); M87.051 Idiopathic aseptic necrosis of right femur; I10 Essential (primary) hypertension; K21.9 Gastro-esophageal reflux disease without esophagitis; E78.00 Pure hypercholesterolemia, unspecified; K22.70 Barrett's esophagus without dysplasia; E74.39 Other disorders of intestinal carbohydrate absorption; Z86.010 Personal history of colon polyps; Z98.1 Arthrodesis status; Z82.49 Family history of ischemic heart disease and other diseases of the circulatory system; Z72.89 Other problems related to lifestyle; R25.1 Tremor, unspecified; Z87.891 Personal history of nicotine dependence; E78.5 Hyperlipidemia, unspecified; K59.00 Constipation, unspecified; Z79.82 Long term (current) use of aspirin; Z79.01 Long term (current) use of anticoagulants
CPT/HCPCS: 36415; 72170; 80048; 82565; 85014; 85018; 85049; 85610; 85730; A9270-GY; J0690; J0780; J1100; J1650; J2405; J2704; J3010

== ENCOUNTER 2024-04-20 19:16 | Inpatient (IN) ==
[2024-04-20 19:54] LABS: ABS Basophils 0.1 10^3/uL (0.0-0.1); ABS Eosinophils 0.1 10^3/uL (0.0-0.5); ABS Monocytes 0.9 10^3/uL (0.0-1.1); ABS Neutrophils 6.6 10^3/uL (1.5-7.6); Eosinophil % 1.1 %; Hematocrit 41.7 % (38-53); Hemoglobin 14.5 g/dL (13.2-16.3); Lymphocyte % 20.7 %; Mean Corpuscular Hemoglobin 33.6 pg (27-33); Mean Corpuscular Hgb Conc 34.7 g/dL (31-36); Mean Corpuscular Volume 96.8 fL (80-97); Mean Platelet Volume 7.3 fL (7.5-11.2); Platelet Count 298 10^3/uL (150-450); Red Cell Distribution Width 13.4 % (12-17); White Blood Count 9.7 10^3/uL (3.6-10.2)
[2024-04-20 20:26] LABS: Albumin 4.4 g/dL (3.5-5.7); Albumin/Globulin Ratio 1.7 (1-3); Calcium 9.9 mg/dL (8.6-10.3); Creatinine, Serum 1.35 mg/dL (0.67-1.17); Globulin 2.6 g/dL (2-4); Potassium 3.8 mmol/L (3.5-5.0); Total Bilirubin 0.4 mg/dL (0.2-1.0); eGFR CKD-EPI 57.2 (>60)
[2024-04-20 20:40] LABS: TSH Ultra Thyroid Stim Horm 1.68 mcIU/mL (0.34-5.60)
[2024-04-20] MEDS ORDERED: Sulfur Hexaflouride MICROSPHR 25 MG VIAL IV PRN (21:18)
[2024-04-20] MEDS: Enoxaparin 40 MG/0.4 ML SYR SUBCUT SCH (23:17)
[2024-04-21 06:28] LABS: Calcium 8.8 mg/dL (8.6-10.3); Creatinine, Serum 1.01 mg/dL (0.67-1.17); Magnesium 1.8 mg/dL (1.9-2.7); Phosphorus 3.2 mg/dL (2.5-5.0); Potassium 4.1 mmol/L (3.5-5.0)
[2024-04-21] MEDS: Magnesium Sulfate 2 gm BAG 2 GM/50 ML BAG IVPB ONE (20:27)
[2024-04-22 19:49] LABS: TSH Ultra Thyroid Stim Horm 1.65 mcIU/mL (0.34-5.60)
[2024-04-22 19:51] LABS: Free T3 2.97 pg/mL (2.5-3.9); Free T4 0.7 ng/dL (0.61-1.12)
[2024-04-23] MEDS: NS 0.9% 1000 ml BAG 1,000 ML IV SCH (09:07)
[2024-04-23 09:29] LABS: Calcium 9.7 mg/dL (8.6-10.3); Creatinine, Serum 1.03 mg/dL (0.67-1.17); Magnesium 1.8 mg/dL (1.9-2.7); Potassium 3.9 mmol/L (3.5-5.0); eGFR CKD-EPI 79.1 (>60)
[2024-04-23] MEDS: Magnesium Sulfate 2 gm BAG 2 GM/50 ML BAG IVPB ONE (10:49)
[2024-04-23] MEDS: Potassium Chlor 20 meq TAB.ER PO ONE (10:49)
[2024-04-23] MEDS ORDERED: fentaNYL 100 mcg/2 ml 50 MCG/ML VIAL ONE (15:05)
[2024-04-23] MEDS ORDERED: Flumazenil 0.5 mg/5 ml 0.1 MG/ML 5 ml VIAL ONE (15:05)
[2024-04-23] MEDS ORDERED: Naloxone 0.4 mg VIAL 0.4 mg/ml 1 ml VIAL ONE (15:05)
[2024-04-23] MEDS ORDERED: Midazolam 5 mg/5 ml VIAL 1 mg/ml 5 ml VIAL (5 mg) ONE (15:05)
[2024-04-23] MEDS ORDERED: Lidocaine 1% VIAL 10 MG/ML 30 ML VIAL ONE (15:16)
[2024-04-23] MEDS ORDERED: ceFAZolin VIAL 1 GM in NS 0.9% 50 ML 50 ML IVPB SCH (18:00)
[2024-04-23] MEDS: ceFAZolin 2 GM PREMIX 2 GM/50 ML BAG IV ONE (18:47)
[2024-04-23] MEDS: ceFAZolin SYR FLUSH 1 GM/10 ML for pocket flush (cardiology) FLUSH ONE (18:48)
[2024-04-23] MEDS: Midazolam 10 mg/10 ml VIAL 1 mg/ml 10 ml VIAL (10 mg) IV SLOW PU ONE (18:48)
[2024-04-23] MEDS: fentaNYL 100 mcg/2 ml 50 MCG/ML VIAL IV SLOW PU ONE (18:48)
[2024-04-23] MEDS: ceFAZolin 1 GM in Dextrose 1 GM/50 ML BAG IVPB SCH (18:57)
[2024-04-24 09:57] VITALS: BP 148/69
== END 2024-04-24 11:55 | disposition home or self-care (01) | DRG 244 ==
LOC: ED 19:16 → EDHOLD 20:34 → MEDTELE 04-21 12:57
PROVIDERS: ADMIT Hospitalist; ATTEND Internal Medicine